=== PATIENT | male | born 1985 | race Caucasian/White ===

== ENCOUNTER 2021-03-13 00:15 | Emergency (ER) | payer OTHER ==
[~2021-03-13] VITALS: Ht 172.7 cm; Wt 76.2 kg
[~2021-03-13 00:15] MED LIST: NOHOMEMEDICATIONS; PYRIDIUM200 MG PO; ULTRAM 50MG TAB50 MG PO
[2021-03-13 01:05] LABS: INFLUENZA A ANTIGEN Negative (Negative); INFLUENZA B ANTIGEN Negative (Negative)
[2021-03-13 03:58] VITALS: BP 135/74
== END 2021-03-13 03:58 | disposition home or self-care (01) ==
LOC: M.ERS 00:15
PROVIDERS: Emergency Medicine
DX: U07.1 COVID-19 (principal); Z88.0 Allergy status to penicillin